=== PATIENT | male | born 1985 | race Caucasian/White ===

== ENCOUNTER 2020-03-14 12:56 | Inpatient (IN) | payer OTHER ==
[~2020-03-14] VITALS: Ht 172.7 cm; Wt 158.8 kg
[2020-03-14] MEDS ORDERED: mucinex (13:03)
[2020-03-14] MEDS ORDERED: amoxil (13:03)
[2020-03-14] MEDS ORDERED: TETANUS, DIPHTHERIA, PERTUSSIS VAC/PF 0.5ML (>7YR OLD) IM ONE (13:15)
[2020-03-14] MEDS ORDERED: BACITRACIN ZINC OINT UDPKT TOP ONE (13:15)
[2020-03-14] MEDS ORDERED: LIDOCAINE 1%/EPI 1:100,000 10 ML VIAL IJ ONE ×2 (13:15→14:30)
[2020-03-14] MEDS ORDERED: LIDOCAINE HCL/EPINEPHRINE 1%-EPI 1:100,000 20 ML VIAL ONE (13:21)
[2020-03-14] MEDS ORDERED: LIDOCAINE HCL/EPINEPHRINE 1%-EPI 1:100,000 20 ML VIAL INFIL NR (13:30)
[2020-03-14] MEDS ORDERED: HYDROCODONE/ACETAMINOPHEN 5/325MG TABLET PO ONE (14:30)
[2020-03-14] MEDS ORDERED: CEFAZOLIN 1000MG PREMIX 50 ML IV ONE (15:30)
[2020-03-14 15:47] LABS: CHLORIDE 104 mEq/L (98-107); PARTIAL THROMBOPLASTIN TIME 27.3 sec (23.4-31.0); PROTHROMBIN TIME 10.7 sec (9.6-11.0)
[2020-03-14 15:55] LABS: EOSINOPHILS % 4.6 % (0.0-5.0); HEMATOCRIT. 42.3 % (42.0-52.0); HEMOGLOBIN. 14.4 g/dL (14.0-18.0); LYMPHOCYTES % 17.8 % (20.0-50.0); MEAN CORPUSCULAR HEMOGLOBIN 27.8 pg (28.0-32.0); MEAN CORPUSCULAR VOLUME 81.7 fL (80.0-94.0); MEAN PLATELET VOLUME 8.9 fl (7.4-10.4); MONOCYTES % 6.3 % (2.0-8.0); NEUTROPHILS % 70.3 % (40.0-76.0); PLATELET 237 x1000/uL (130-400); RED BLOOD CELL COUNT 5.17 mill/uL (4.7-6.1); RED CELL DISTRIBUTION WIDTH 14.1 % (11.6-14.6)
[2020-03-14 16:03] LABS: CLARITY URINE CLEAR (CLEAR); COLOR URINE YELLOW (YELLOW); KETONES URINE NEGATIVE (NEGATIVE); LEUKOCYTE ESTERASE URINE 1+ (NEGATIVE); NITRITE URINE NEGATIVE (NEGATIVE); OCCULT BLOOD URINE TRACE (NEGATIVE); PROTEIN URINE NEGATIVE (NEGATIVE); SPECIFIC GRAVITY URINE 1.014 (1.005-1.030); UROBILINOGEN URINE 0.2 E.U./dL (0.2-1.0)
[2020-03-14] MEDS ORDERED: IOHEXOL-350 100 ML BOTTLE ONE (16:28)
[2020-03-14] MEDS ORDERED: CLONIDINE 0.1MG TABLET PO PRN (19:45)
[2020-03-14] MEDS ORDERED: HYDROCODONE/ACETAMINOPHEN 10/325MG TABLET PO PRN (19:45)
[2020-03-14] MEDS ORDERED: GUAIFENESIN 200MG/10ML SUGAR FREE UDC PO PRN (19:45)
[2020-03-14] MEDS ORDERED: ACETAMINOPHEN 325MG TABLET PO PRN ×2 (19:45)
[2020-03-14] MEDS ORDERED: ONDANSETRON HCL 4MG/2ML INJ IV PRN (19:45)
[2020-03-14] MEDS ORDERED: ZOLPIDEM TARTRATE 5MG TABLET PO PRN (19:45)
[2020-03-14] MEDS ORDERED: MAGNESIUM/ALUMINUM HYDROXIDE/SIMETHICONE 30ML UDC PO PRN (19:45)
[2020-03-14 22:00] VITALS: BP 123/73
[2020-03-14] MEDS ORDERED: SODIUM CHLORIDE 0.9% INJ 3ML FLUSH IVF SCH (22:00)
[2020-03-15 00:02] LABS: HEMOGLOBIN 13.6 g/dL (14.0-18.0)
[2020-03-15] MEDS: CEFAZOLIN 1000MG PREMIX 50 ML IV SCH ×2 (01:09→09:48)
[2020-03-15 04:00] VITALS: BP 120/77
[2020-03-15 05:41] VITALS: BP 120/77
[2020-03-15 07:26] LABS: BASOPHILS % 1.1 % (0.0-2.0); EOSINOPHILS % 7.2 % (0.0-5.0); HEMATOCRIT. 42.6 % (42.0-52.0); HEMOGLOBIN. 14.5 g/dL (14.0-18.0); LYMPHOCYTES % 23.6 % (20.0-50.0); MEAN CORPUSCULAR HEMOGLOBIN 27.9 pg (28.0-32.0); MEAN CORPUSCULAR VOLUME 81.9 fL (80.0-94.0); MEAN PLATELET VOLUME 9.1 fl (7.4-10.4); MONOCYTES % 5.5 % (2.0-8.0); NEUTROPHILS % 62.6 % (40.0-76.0); PLATELET 219 x1000/uL (130-400)
[2020-03-15 07:30] LABS: CHLORIDE 102 mEq/L (98-107)
[2020-03-15 08:00] VITALS: BP 145/80
[2020-03-15 11:25] LABS: HEMATOCRIT 42.5 % (42.0-52.0); HEMOGLOBIN 14.3 g/dL (14.0-18.0)
[2020-03-15 12:00] VITALS: BP 136/68
[2020-03-15 13:23] VITALS: BP 136/99
[2020-03-15 13:32] VITALS: BP 136/68
== END 2020-03-15 14:41 | disposition home or self-care (01) | DRG 605 ==
LOC: ER 12:56 → ENRESERV 21:08 → 6EST 22:16
PROVIDERS: ADMIT Internal Medicine; ATTEND Internal Medicine
PROC: 0HQHXZZ Repair Right Upper Leg Skin, External Approach (ICD-10-PCS; principal; 2020-03-14)
DX: S71.111A Laceration without foreign body, right thigh, initial encounter (principal); Z68.43 Body mass index [BMI] 50.0-59.9, adult; T79.7XXA Traumatic subcutaneous emphysema, initial encounter; E66.9 Obesity, unspecified; W01.0XXA Fall on same level from slipping, tripping and stumbling without subsequent striking against object, initial encounter; Y93.89 Activity, other specified; Y92.89 Other specified places as the place of occurrence of the external cause; Y99.8 Other external cause status
CPT/HCPCS: 36415; 72191; 73706; 80048; 81003; 85014; 85018; 85025; 90715; 99285; J0690; J3490; Q9967